=== PATIENT | female | born 1990 | race Two or more races ===

== ENCOUNTER 2025-10-24 16:10 | Inpatient (IN) | payer OTHER ==
[~2025-10-24] VITALS: Ht 170.2 cm; Wt 83.9 kg
[2025-10-24] MEDS ORDERED: DICL100G61 TP (16:36)
[2025-10-24] MEDS ORDERED: CHOL2000 PO (16:36)
[2025-10-24] MEDS ORDERED: FOLI1TAB94 PO (16:36)
[2025-10-24] MEDS ORDERED: HYDR5TAB PO (16:36)
[2025-10-24] MEDS ORDERED: [UNRECOGNIZED DRUG - CODE] PO (16:36)
[2025-10-24] MEDS ORDERED: HYDR500C2 PO (16:36)
[2025-10-24] MEDS ORDERED: ALBU2.5V38 NEB (16:36)
[2025-10-24] MEDS ORDERED: CETI-90 PO (16:36)
[2025-10-24] MEDS ORDERED: [UNRECOGNIZED DRUG - CODE] PO (16:36)
[2025-10-24] MEDS ORDERED: DOCU100T2 PO (16:36)
[2025-10-24] MEDS ORDERED: IPRA3AMP22 NEB (16:36)
[2025-10-24] MEDS ORDERED: HYDR-501 PO (16:36)
[2025-10-24] MEDS ORDERED: LEVE500T9 PO (16:36)
[2025-10-24] MEDS ORDERED: DIPH25TA62 PO (16:36)
[2025-10-24] MEDS ORDERED: GABA300C PO (16:36)
[2025-10-24] MEDS ORDERED: CALC-494 PO (16:36)
[2025-10-24] MEDS ORDERED: BUPR100T5 PO (16:36)
[2025-10-24] MEDS ORDERED: MIRT-93 PO (16:43)
[2025-10-24] MEDS ORDERED: MULT400T5 PO (16:43)
[2025-10-24] MEDS ORDERED: PANT20TA2 PO (16:43)
[2025-10-24] MEDS ORDERED: LORA0.5T48 PO (16:43)
[2025-10-24] MEDS ORDERED: ONDA-104 PO (16:43)
[2025-10-24] MEDS ORDERED: OXYC5CAP22 PO (16:43)
[2025-10-24] MEDS ORDERED: MIDO10TA3 PO (16:43)
[2025-10-24] MEDS ORDERED: SIME80TA15 PO (16:43)
[2025-10-24] MEDS ORDERED: THIA100T88 PO (16:43)
[2025-10-24] MEDS ORDERED: SEVE2.4P3 PO (16:43)
[2025-10-24] MEDS ORDERED: NALO4SPR NS (16:43)
[2025-10-24] MEDS ORDERED: MELA10CA11 PO (16:43)
[2025-10-24] MEDS ORDERED: RIFA550T PO (16:43)
[2025-10-24] MEDS ORDERED: POLY17PO4 PO (16:43)
[2025-10-24 19:07] LABS: PLATELET COUNT (AUTO) 80 K/uL (179-408); RED CELL DISTRIBUTION WIDTH 20.0 % (12.3-17.7); WHITE BLOOD COUNT (AUTO) 8.9 K/uL (3.8-11.8)
[2025-10-24 19:11] LABS: RED BLOOD CELL COUNT(AUTO) 1.88 MIL/uL (3.63-4.92)
[2025-10-24 19:13] LABS: ASPARTATE AMINOTRANSFERASE 55 U/L (15-37); CREATININE 3.9 mg/dL (0.6-1.3); SODIUM SERUM 140 mmol/L (136-145); TOTAL PROTEIN, SERUM 6.8 g/dL (6.4-8.2); UREA NITROGEN, BLOOD 29 mg/dL (7-18)
[2025-10-24 19:19] LABS: LACTIC ACID 10.6 mmol/L (0.4-2.0)
[2025-10-24] MEDS ORDERED: DEXTROSE 50% 50 ML DISP.SYRIN ONE (19:19)
[2025-10-24] MEDS: IV NORMAL SALINE 1000 ML BAG IV ONE (19:30)
[2025-10-24] MEDS ORDERED: NOREPINEPHRINE 8MG/NS 250ML 250 ML IV ONE (19:37)
[2025-10-24 19:45] LABS: ACETONE, SERUM NEGATIVE (NEGATIVE)
[2025-10-24] MEDS: DEXTROSE 50% 50 ML DISP.SYRIN IV ONE (19:45)
[2025-10-24] MEDS ORDERED: ENOXAPARIN SODIUM 60 MG/0.6 ML DISP.SYRIN SQ ONE (19:51)
[2025-10-24] MEDS ORDERED: ETOMIDATE 20 MG/10 ML VIAL ONE (19:52)
[2025-10-24] MEDS: ETOMIDATE 20 MG/10 ML VIAL IV ONE (19:57)
[2025-10-24] MEDS: SUCCINYLCHOLINE CHLORIDE 200 MG/10 ML VIAL IV ONE (19:58)
[2025-10-24] MEDS ORDERED: SUCCINYLCHOLINE CHLORIDE 200 MG/10 ML VIAL ONE (20:00)
[2025-10-24] MEDS: ENOXAPARIN SODIUM 60 MG/0.6 ML DISP.SYRIN SQ ONE (20:00)
[2025-10-24] MEDS ORDERED: PROPOFOL 100 ML ONE (20:00)
[2025-10-24] MEDS: PROPOFOL 100 ML IV ONE (20:00)
[2025-10-24 20:22] LABS: BAND % (MANUAL) 21 % (0-10); LYMPHOCYTES % (MANUAL) 31 % (20-40); MONOCYTES % (MANUAL) 10 % (2-10); MYELOCYTES % 1 % (0-0); NEUTROPHILS % (MANUAL) 37 % (42-75)
[2025-10-24 20:48] LABS: PLATELET ESTIMATE DECREASED
[2025-10-24] MEDS ORDERED: ONDANSETRON 4 MG/2 ML VIAL ONE (21:21)
[2025-10-24] MEDS: ONDANSETRON 4 MG/2 ML VIAL IV ONE (21:30)
[2025-10-24] MEDS: NOREPINEPHRINE 8MG/NS 250ML 250 ML IV PRN (21:38)
[2025-10-24] MEDS ORDERED: ONDANSETRON 4 MG/2 ML VIAL IV PRN (21:45)
[2025-10-24] MEDS ORDERED: MAGNESIUM HYDROXIDE 30 ML LIQUID UDC PO PRN (21:45)
[2025-10-24 22:00] VITALS: BP 95/57
[2025-10-24 22:08] LABS: ABG BASE EXCESS -7.7 mmol/L (-2.0-3.0); ABG HCO3 17.2 mmol/L (21.0-28.0); ABG PCO2 31.5 mmHg (32.0-45.0); ABG PH 7.354 (7.350-7.450); ABG PO2 100.9 mmHg (83.0-108.0); ABG SITE RIGHT BRACHIAL; ABG TOTAL HEMOGLOBIN 6.2 G/dL (12.0-16.0); AaDO2 97.5 mmHg; FIO2 60.0 %; PEEP,BG 5.0 cmH20; SET RATE, BG 18.0; VT, ABG 450 mL
[2025-10-24] MEDS ORDERED: INSULIN REGULAR, HUMAN 1000 UNIT/10 ML VIAL SQ PRN (22:15)
[2025-10-24] MEDS: PROPOFOL 100 ML IV PRN (22:33)
[2025-10-24 22:57] VITALS: BP 95/48
[2025-10-24 23:00] VITALS: BP 95/51; TEMP 98.8; O2SAT 100
[2025-10-24 23:15] VITALS: BP 94/51; O2SAT 100
[2025-10-24 23:30] VITALS: BP 100/55; O2SAT 100
[2025-10-24] MEDS: BLOOD SUGAR DIAGNOSTIC 1 EACH STRIP VI SCH (23:44)
[2025-10-24 23:45] VITALS: BP 98/56; O2SAT 100
[2025-10-25] VITALS (101 sets, daily range): BP systolic 64–131; BP diastolic 36–81; TEMP 98–99; O2SAT 93–100
[2025-10-25] MEDS: VANCOMYCIN IV 1,000 MG in IV NORMAL SALINE 250 ML IV ONE (02:56)
[2025-10-25] MEDS: PANTOPRAZOLE SODIUM 40 MG VIAL IV SCH (02:57)
[2025-10-25] MEDS: PROPOFOL 100 ML IV PRN (04:00)
[2025-10-25 04:48] LABS: PLATELET COUNT (AUTO) 89 K/uL (179-408); RED BLOOD CELL COUNT(AUTO) 3.04 MIL/uL (3.63-4.92); RED CELL DISTRIBUTION WIDTH 19.7 % (12.3-17.7); WHITE BLOOD COUNT (AUTO) 12.9 K/uL (3.8-11.8)
[2025-10-25 04:59] LABS: ASPARTATE AMINOTRANSFERASE 79.0 U/L (15-37); CREATININE 2.7 mg/dL (0.6-1.3); SODIUM SERUM 138.0 mmol/L (136-145); TOTAL PROTEIN, SERUM 8.0 g/dL (6.4-8.2); UREA NITROGEN, BLOOD 18.0 mg/dL (7-18)
[2025-10-25 05:14] LABS: IRON, SERUM 108.0 ug/dL (50-175)
[2025-10-25 06:09] LABS: BAND % (MANUAL) 6 % (0-10); EOSINOPHILS % (MANUAL) 1 % (0-8); LYMPHOCYTES % (MANUAL) 34 % (20-40); METAMYELOCYTES % 2 % (0-1); MONOCYTES % (MANUAL) 12 % (2-10); MYELOCYTES % 2 % (0-0); NEUTROPHILS % (MANUAL) 43 % (42-75)
[2025-10-25 06:10] LABS: PLATELET ESTIMATE DECREASED
[2025-10-25 06:15] LABS: NUCLEATED RED BLOOD CELLS 3.0 /100WBC
[2025-10-25] MEDS: NOREPINEPHRINE 8MG/NS 250ML 250 ML IV PRN (06:16)
[2025-10-25] MEDS: NOREPINEPHRINE BITARTRATE 32 MG in IV NORMAL SALINE 218 ML IV PRN (09:00)
[2025-10-25] MEDS ORDERED: PANTOPRAZOLE SODIUM 40 MG VIAL IV SCH (09:00)
[2025-10-25] MEDS ORDERED: VANCOMYCIN IV 500 MG in IV DEXTROSE 5% 100 ML IV PRN (10:00)
[2025-10-25] MEDS: MAGNESIUM SULFATE/D5W 100 ML IV SCH (10:42)
[2025-10-25] MEDS: POTASSIUM CHLORIDE 50 ML IV SCH (11:01)
[2025-10-25] MEDS: AMIODARONE HCL IV 150 MG in IV DEXTROSE 5% 100 ML IV ONE (11:06)
[2025-10-25] MEDS: DEXTROSE 50% 50 ML DISP.SYRIN IV PRN (11:09)
[2025-10-25] MEDS: AMIODARONE HCL IV 450 MG in IV DEXTROSE 5% 250 ML IV PRN (11:12)
[2025-10-25] MEDS ORDERED: NOREPINEPHRINE 8MG/NS 250ML 250 ML IV PRN (12:00)
[2025-10-25 14:16] LABS: HIV-1/2 ANTIBODY NON REACTIVE (NONREACTIVE)
[2025-10-25] MEDS: MICAFUNGIN SODIUM 100 MG in IV NORMAL SALINE 100 ML IV SCH (15:05)
[2025-10-25] MEDS: IV D5/ 0.9% NACL 1,000 ML IV PRN (17:45)
[2025-10-25] MEDS ORDERED: VASOPRESSIN 40 UNIT in IV NORMAL SALINE 40 ML IV PRN (19:00)
[2025-10-25 20:28] LABS: ABG BASE EXCESS -2.7 mmol/L (-2.0-3.0); ABG HCO3 21.2 mmol/L (21.0-28.0); ABG PCO2 33.0 mmHg (32.0-45.0); ABG PH 7.425 (7.350-7.450); ABG PO2 148.6 mmHg (83.0-108.0); ABG SITE LEFT BRACHIAL; ABG TOTAL HEMOGLOBIN 9.6 G/dL (12.0-16.0); AaDO2 99.0 mmHg; FIO2 60.0 %; PEEP,BG 5.0 cmH20; SET RATE, BG 18.0; VT, ABG 450 mL
[2025-10-25] MEDS ORDERED: MEROPENEM 500 MG in IV NORMAL SALINE 50 ML IV SCH (21:00)
[2025-10-25] MEDS ORDERED: CEFEPIME (MAXEPIME) 1 G in IV DEXTROSE 5% 50 ML IV SCH (21:00)
[2025-10-25] MEDS: MEROPENEM 500 MG in IV NORMAL SALINE 50 ML IV SCH (21:59)
[2025-10-25] MEDS: PHENYLEPHRINE 10 MG/1 ML VIAL ONE (22:05)
[2025-10-25] MEDS: PHENYLEPHRINE IV 100 MG in IV NORMAL SALINE 240 ML IV PRN (22:05)
[2025-10-26] VITALS (85 sets, daily range): BP systolic 74–107; BP diastolic 41–64; TEMP 97.8–100; O2SAT 91–98
[2025-10-26] MEDS: VANCOMYCIN IV 500 MG in IV DEXTROSE 5% 100 ML IV ONE (05:00)
[2025-10-26 05:51] LABS: PLATELET COUNT (AUTO) 66 K/uL (179-408); RED BLOOD CELL COUNT(AUTO) 2.89 MIL/uL (3.63-4.92); RED CELL DISTRIBUTION WIDTH 20.1 % (12.3-17.7); WHITE BLOOD COUNT (AUTO) 16.2 K/uL (3.8-11.8)
[2025-10-26 05:53] LABS: CREATININE 3.3 mg/dL (0.6-1.3); SODIUM SERUM 131.0 mmol/L (136-145); UREA NITROGEN, BLOOD 25.0 mg/dL (7-18)
[2025-10-26 06:20] LABS: BAND % (MANUAL) 4 % (0-10); EOSINOPHILS % (MANUAL) 1 % (0-8); LYMPHOCYTES % (MANUAL) 56 % (20-40); METAMYELOCYTES % 1 % (0-1); MONOCYTES % (MANUAL) 3 % (2-10); MYELOCYTES % 1 % (0-0); NEUTROPHILS % (MANUAL) 34 % (42-75); PLATELET ESTIMATE DECREASED
[2025-10-26 06:21] LABS: ABG BASE EXCESS -6.7 mmol/L (-2.0-3.0); ABG HCO3 18.0 mmol/L (21.0-28.0); ABG PCO2 33.0 mmHg (32.0-45.0); ABG PH 7.355 (7.350-7.450); ABG PO2 67.5 mmHg (83.0-108.0); ABG SITE LEFT BRACHIAL; ABG TOTAL HEMOGLOBIN 9.6 G/dL (12.0-16.0); AaDO2 92.9 mmHg; FIO2 40.0 %; SET RATE, BG 18.0; VT, ABG 450 mL
[2025-10-27] VITALS (95 sets, daily range): BP systolic 73–112; BP diastolic 35–55; TEMP 98.6–99.7; O2SAT 89–100
[2025-10-27 06:11] LABS: ABG BASE EXCESS -12.5 mmol/L (-2.0-3.0); ABG HCO3 12.9 mmol/L (21.0-28.0); ABG PCO2 27.7 mmHg (32.0-45.0); ABG PH 7.286 (7.350-7.450); ABG PO2 54.6 mmHg (83.0-108.0); ABG SITE LEFT BRACHIAL; ABG TOTAL HEMOGLOBIN 8.9 G/dL (12.0-16.0); AaDO2 85.4 mmHg; FIO2 50.0 %; PEEP,BG 5.0 cmH20; SET RATE, BG 18.0; VT, ABG 450 mL
[2025-10-27] MEDS: ALBUMIN HUMAN 25% 50 ML IV PRN (08:37)
[2025-10-27 09:06] LABS: ASPARTATE AMINOTRANSFERASE 92.0 U/L (15-37); CREATININE 3.0 mg/dL (0.6-1.3); SODIUM SERUM 135.0 mmol/L (136-145); TOTAL PROTEIN, SERUM 6.3 g/dL (6.4-8.2); UREA NITROGEN, BLOOD 22.0 mg/dL (7-18)
[2025-10-27 09:21] LABS: LACTIC ACID 9.5 mmol/L (0.4-2.0)
[2025-10-27 10:27] LABS: RED BLOOD CELL COUNT(AUTO) 2.63 MIL/uL (3.63-4.92); RED CELL DISTRIBUTION WIDTH 20.0 % (12.3-17.7); WHITE BLOOD COUNT (AUTO) 15.4 K/uL (3.8-11.8)
[2025-10-27 10:31] LABS: PLATELET COUNT (AUTO) 46 K/uL (179-408)
[2025-10-27 11:35] LABS: LYMPHOCYTES % (MANUAL) 10 % (20-40); NEUTROPHILS % (MANUAL) 82 % (42-75)
[2025-10-27 11:36] LABS: EOSINOPHILS % (MANUAL) 1 % (0-8); MONOCYTES % (MANUAL) 7 % (2-10); PLATELET ESTIMATE DECREASED
[2025-10-27 11:37] LABS: NUCLEATED RED BLOOD CELLS 5.0 /100WBC
[2025-10-27] MEDS: VANCOMYCIN IV 1,000 MG in IV DEXTROSE 5% 250 ML IV ONE (12:59)
[2025-10-27 16:22] LABS: *RHEUMATOID FACTOR SCREEN NEGATIVE (NEGATIVE)
[2025-10-27 16:47] LABS: HIV-1/2 ANTIBODY NON REACTIVE (NONREACTIVE)
[2025-10-27 17:08] LABS: FIBRINOGEN ACTIVITY 12 mg/dL (210-360)
[2025-10-27 17:21] LABS: IRON, SERUM 104.0 ug/dL (50-175); LACTATE DEHYDROGENASE 192.0 U/L (81-234)
[2025-10-27] MEDS ORDERED: POLYVINYL ALCOHOL OPHT DROPS 15 ML BOTTLE EACHEYE PRN (18:30)
[2025-10-27] MEDS ORDERED: ACET-3752 PO (19:16)
[2025-10-27] MEDS ORDERED: HYDR2TAB4 PO (19:18)
[2025-10-27] MEDS ORDERED: [UNRECOGNIZED DRUG - OTHER] PO (19:20)
[2025-10-27] MEDS ORDERED: METO25TA6 PO (19:21)
[2025-10-27] MEDS ORDERED: ONDA-245 PO (19:22)
[2025-10-27] MEDS ORDERED: SIME80TA16 PO (19:24)
[2025-10-27] MEDS ORDERED: SEVE800T28 PO (19:28)
[2025-10-27] MEDS ORDERED: SERT-438 PO (19:29)
[2025-10-27 23:09] LABS: HEPATITIS B SURFACE AG Negative (Negative)
[2025-10-27] MEDS: ACETAMINOPHEN 650 MG SUPP.RECT RC PRN (23:46)
[2025-10-28] VITALS (96 sets, daily range): BP systolic 70–114; BP diastolic 19–62; TEMP 97.8–100.3; O2SAT 91–100
[2025-10-28] MEDS: diphenhydrAMINE 50 MG/1 ML VIAL IV ONE ×3 (00:21→09:35)
[2025-10-28 05:15] LABS: RED CELL DISTRIBUTION WIDTH 20.5 % (12.3-17.7); WHITE BLOOD COUNT (AUTO) 13.8 K/uL (3.8-11.8)
[2025-10-28 05:23] LABS: CREATININE 3.0 mg/dL (0.6-1.3); SODIUM SERUM 135.0 mmol/L (136-145); UREA NITROGEN, BLOOD 20.0 mg/dL (7-18)
[2025-10-28 05:24] LABS: RED BLOOD CELL COUNT(AUTO) 2.34 MIL/uL (3.63-4.92)
[2025-10-28 05:26] LABS: PLATELET COUNT (AUTO) 29 K/uL (179-408)
[2025-10-28 05:34] LABS: FIBRINOGEN ACTIVITY 267.0 mg/dL (210-360)
[2025-10-28 06:19] LABS: BAND % (MANUAL) 1 % (0-10); LYMPHOCYTES % (MANUAL) 13 % (20-40); METAMYELOCYTES % 2 % (0-1); MONOCYTES % (MANUAL) 12 % (2-10); NEUTROPHILS % (MANUAL) 72 % (42-75); PLATELET ESTIMATE DECREASED
[2025-10-28 07:46] LABS: ABG BASE EXCESS -13.8 mmol/L (-2.0-3.0); ABG HCO3 12.5 mmol/L (21.0-28.0); ABG PCO2 30.5 mmHg (32.0-45.0); ABG PH 7.231 (7.350-7.450); ABG PO2 84.5 mmHg (83.0-108.0); ABG SITE LEFT BRACHIAL; ABG TOTAL HEMOGLOBIN 6.4 G/dL (12.0-16.0); AaDO2 94.7 mmHg; FIO2 80.0 %; PEEP,BG 5.0 cmH20; SET RATE, BG 18.0; VT, ABG 450 mL
[2025-10-28] MEDS ORDERED: SODIUM BICARBONATE 8.4% 50 MEQ/50 ML DISP.SYRIN IV ONE (09:15)
[2025-10-28] MEDS: DEXTROSE IV PRN (09:53)
[2025-10-28] MEDS: SODIUM BICARBONATE IV PRN (09:53)
[2025-10-28] MEDS: MAGNESIUM SULFATE/D5W 100 ML IV SCH (11:00)
[2025-10-28] MEDS: POTASSIUM CHLORIDE 50 ML IV SCH (11:12)
[2025-10-28 11:31] LABS: TOTAL PROTEIN, SERUM 6.3 g/dL (6.4-8.2)
[2025-10-28] MEDS ORDERED: LACTULOSE 20 G/30 ML LIQUID UDC PR SCH (11:45)
[2025-10-28 11:47] LABS: ASPARTATE AMINOTRANSFERASE 279.0 U/L (15-37)
[2025-10-28] MEDS: PHYTONADIONE 10 MG/1 ML AMPUL SQ ONE (12:45)
[2025-10-28] MEDS: LIDOCAINE 2%-EPI 1:100,000 20 ML VIAL TP ONE (12:46)
[2025-10-28] MEDS: ALBUTEROL SULFATE 2.5 MG/3 ML NEBU NEB PRN (13:24)
[2025-10-28] MEDS: IPRATROPIUM BROMIDE 0.5 MG/2.5 ML NEBU NEB PRN (13:24)
[2025-10-28 13:42] LABS: PLATELET COUNT (AUTO) 54 K/uL (179-408); RED BLOOD CELL COUNT(AUTO) 3.59 MIL/uL (3.63-4.92); RED CELL DISTRIBUTION WIDTH 21.2 % (12.3-17.7); WHITE BLOOD COUNT (AUTO) 10.2 K/uL (3.8-11.8)
[2025-10-28] MEDS: IRR STERIL WATER FOR IRR 700 ML, LACTULOSE 200 G PR SCH (15:00)
[2025-10-28] MEDS: LACTULOSE 20 G/30 ML LIQUID UDC PO SCH (15:25)
[2025-10-28] MEDS: HYDROXYUREA 500 MG CAPSULE PO SCH (15:26)
[2025-10-28] MEDS: BLOOD SUGAR DIAGNOSTIC 1 EACH STRIP VI SCH (17:57)
[2025-10-28] MEDS: EPINEPHRINE 10 MG in IV NORMAL SALINE 240 ML IV PRN (23:33)
[2025-10-29] VITALS (106 sets, daily range): BP systolic 81–97; BP diastolic 23–53; TEMP 97.1–98.4; O2SAT 88–98
[2025-10-29 05:29] LABS: WHITE BLOOD COUNT (AUTO) 11.4 K/uL (3.8-11.8)
[2025-10-29 05:32] LABS: RED CELL DISTRIBUTION WIDTH 21.5 % (12.3-17.7)
[2025-10-29 05:37] LABS: ABG BASE EXCESS -18.3 mmol/L (-2.0-3.0); ABG HCO3 11.5 mmol/L (21.0-28.0); ABG PCO2 46.4 mmHg (32.0-45.0); ABG PH 7.012 (7.350-7.450); ABG PO2 82.0 mmHg (83.0-108.0); ABG SITE LEFT BRACHIAL; ABG TOTAL HEMOGLOBIN 7.6 G/dL (12.0-16.0); AaDO2 89.4 mmHg; FIO2 100.0 %; FLOW, BLOOD GAS 60.00 L/min (0.00-30.00); PEEP,BG 5.0 cmH20; SET RATE, BG 18.0; VT, ABG 450 mL
[2025-10-29 05:45] LABS: ASPARTATE AMINOTRANSFERASE 773.0 U/L (15-37); CREATININE 3.2 mg/dL (0.6-1.3); SODIUM SERUM 135.0 mmol/L (136-145); TOTAL PROTEIN, SERUM 6.0 g/dL (6.4-8.2); UREA NITROGEN, BLOOD 20.0 mg/dL (7-18)
[2025-10-29 05:48] LABS: FIBRINOGEN ACTIVITY 157.0 mg/dL (210-360); RED BLOOD CELL COUNT(AUTO) 2.37 MIL/uL (3.63-4.92)
[2025-10-29 05:49] LABS: PLATELET COUNT (AUTO) 31 K/uL (179-408)
[2025-10-29 06:08] LABS: BAND % (MANUAL) 4 % (0-10); LYMPHOCYTES % (MANUAL) 35 % (20-40); METAMYELOCYTES % 2 % (0-1); MONOCYTES % (MANUAL) 6 % (2-10); NEUTROPHILS % (MANUAL) 53 % (42-75); PLATELET ESTIMATE DECREASED
[2025-10-29] MEDS: ACETAMINOPHEN 325 MG TABLET PO PRN (09:36)
[2025-10-29] MEDS: diphenhydrAMINE 50 MG/1 ML VIAL IV ONE ×3 (09:51→18:34)
[2025-10-29] MEDS: PHYTONADIONE 10 MG/1 ML AMPUL SQ ONE (12:50)
[2025-10-29] MEDS: ACETAMINOPHEN 325 MG TABLET PO ONE (12:53)
[2025-10-29 13:07] LABS: *ANTI-SCLERODERMA-70 AB <0.2 AI (0.0-0.9); *RNP ANTIBODIES <0.2 AI (0.0-0.9); *SJOGREN'S ANTI-SS-A <0.2 AI (0.0-0.9); *SJOGREN'S ANTI-SS-B <0.2 AI (0.0-0.9); *SMITH ANTIBODIES <0.2 AI (0.0-0.9); ANTI-DNA(DS) AB, QN 8 IU/mL (0-9); ANTI-NUCLEAR AB DIRECT Negative (Negative)
[2025-10-29] MEDS: ACETAMINOPHEN 650 MG/20.3 ML LIQUID UDC GT ONE (18:36)
[2025-10-29] MEDS ORDERED: ACETAMINOPHEN 500 MG TABLET PO PRN (20:30)
[2025-10-29] MEDS: ACETAMINOPHEN 650 MG/20.3 ML LIQUID UDC GT PRN (21:37)
[2025-10-29] MEDS: diphenhydrAMINE 50 MG/1 ML VIAL IV PRN (21:37)
[2025-10-29 22:07] LABS: *IMMUNOGLOBULIN G, SERUM 2786 mg/dL (586-1602); FOLATE (FOLIC ACID), SERUM 8.7 ng/mL (>3.0); HAPTOGLOBIN 26 mg/dL (33-278); IMMUNOGLOBULIN A, SERUM 452 mg/dL (87-352); IMMUNOGLOBULIN M, SERUM 69 mg/dL (26-217)
[2025-10-29 23:09] LABS: CANCER ANTIGEN 15-3 19.7 U/mL (0.0-25.0); CARCINOEMBRYONIC AG (CEA) 13.0 ng/mL (0.0-4.7)
[2025-10-30] VITALS (61 sets, daily range): BP systolic 47–113; BP diastolic 11–62; TEMP 97.3–98; O2SAT 69–96
[2025-10-30 03:11] LABS: HEPATITIS B CORE AB, IgM Negative (Negative); HEPATITIS B SURFACE AB, QUAL Reactive (.); HEPATITIS B SURFACE AG Negative (Negative); HEPATITIS C VIRUS ANTIBODY Non Reactive (Non Reactive)
[2025-10-30 04:37] LABS: RED BLOOD CELL COUNT(AUTO) 2.83 MIL/uL (3.63-4.92); RED CELL DISTRIBUTION WIDTH 21.2 % (12.3-17.7); WHITE BLOOD COUNT (AUTO) 12.9 K/uL (3.8-11.8)
[2025-10-30 04:47] LABS: CREATININE 3.2 mg/dL (0.6-1.3); SODIUM SERUM 135.0 mmol/L (136-145); UREA NITROGEN, BLOOD 20.0 mg/dL (7-18)
[2025-10-30 04:48] LABS: PLATELET COUNT (AUTO) 41 K/uL (179-408)
[2025-10-30 04:50] LABS: FIBRINOGEN ACTIVITY 109.0 mg/dL (210-360)
[2025-10-30 05:31] LABS: BAND % (MANUAL) 8 % (0-10); MONOCYTES % (MANUAL) 10 % (2-10); PLATELET ESTIMATE MARKED DECREASED
[2025-10-30 05:33] LABS: NUCLEATED RED BLOOD CELLS 2.0 /100WBC
[2025-10-30 05:36] LABS: LYMPHOCYTES % (MANUAL) 13 % (20-40)
[2025-10-30 05:37] LABS: NEUTROPHILS % (MANUAL) 69 % (42-75)
[2025-10-30 09:10] LABS: A/G RATIO 0.7 (0.7-1.7); BETA GLOBULIN 0.5 g/dL (0.7-1.3); GLOBULIN, TOTAL 3.5 g/dL (2.2-3.9); M-SPIKE Not Observed g/dL (Not Observed); PROTEIN, TOTAL 5.9 g/dL (6.0-8.5)
[2025-10-30] MEDS ORDERED: diphenhydrAMINE 50 MG/1 ML VIAL IV ONE (11:00)
[2025-10-30] MEDS ORDERED: ACETAMINOPHEN 325 MG TABLET PO ONE (11:00)
[2025-10-30 13:07] LABS: FREE KAPPA LT CHAINS SERUM 175.3 mg/L (3.3-19.4); FREE LAMBDA LT CHAIN SERUM 230.0 mg/L (5.7-26.3); KAPPA/LAMBDA RATIO SERUM 0.76 (0.26-1.65)
[2025-10-31 03:45] LABS: ABG BASE EXCESS -27.6 mmol/L (-2.0-3.0); ABG HCO3 6.9 mmol/L (21.0-28.0); ABG PCO2 53.2 mmHg (32.0-45.0); ABG PH 6.732 (7.350-7.450); ABG PO2 < 40.5 mmHg (83.0-108.0); ABG SITE VBG - N/A; ABG TOTAL HEMOGLOBIN 9.0 G/dL (12.0-16.0); AaDO2 24.0 mmHg; FIO2 100.0 %; PEEP,BG 5.0 cmH20; SET RATE, BG 24.0; VT, ABG 450 mL
== END 2025-10-30 13:00 | DRG 720 ==
LOC: ER 16:13 → ICU IN 21:00 → CCU 21:41
PROVIDERS: ADMIT Nurse Practitioner Family; ATTEND Nurse Practitioner Family
PROC: 0BH17EZ Insertion of Endotracheal Airway into Trachea, Via Natural or Artificial Opening (ICD-10-PCS; principal; 2025-10-24)
PROC: 06HY33Z Insertion of Infusion Device into Lower Vein, Percutaneous Approach (ICD-10-PCS; principal; 2025-10-24)
PROC: 5A1955Z Respiratory Ventilation, Greater than 96 Consecutive Hours (ICD-10-PCS; principal; 2025-10-24)
PROC: 5A1D70Z Performance of Urinary Filtration, Intermittent, Less than 6 Hours Per Day (ICD-10-PCS; 2025-10-25)
PROC: 30243N1 Transfusion of Nonautologous Red Blood Cells into Central Vein, Percutaneous Approach (ICD-10-PCS; 2025-10-25)
PROC: 05PY33Z Removal of Infusion Device from Upper Vein, Percutaneous Approach (ICD-10-PCS; 2025-10-28)
PROC: 30243R1 Transfusion of Nonautologous Platelets into Central Vein, Percutaneous Approach (ICD-10-PCS; 2025-10-28)
PROC: 30233K1 Transfusion of Nonautologous Frozen Plasma into Peripheral Vein, Percutaneous Approach (ICD-10-PCS; 2025-10-28)
PROC: 30233M1 Transfusion of Nonautologous Plasma Cryoprecipitate into Peripheral Vein, Percutaneous Approach (ICD-10-PCS; 2025-10-28)
DX: A41.51 Sepsis due to Escherichia coli [E. coli] (principal); D65 Disseminated intravascular coagulation [defibrination syndrome]; K72.00 Acute and subacute hepatic failure without coma; R65.21 Severe sepsis with septic shock; J96.01 Acute respiratory failure with hypoxia; J15.0 Pneumonia due to Klebsiella pneumoniae; I13.2 Hypertensive heart and chronic kidney disease with heart failure and with stage 5 chronic kidney disease, or end stage renal disease; J15.5 Pneumonia due to Escherichia coli; R18.8 Other ascites; D61.818 Other pancytopenia; N18.6 End stage renal disease; Z99.2 Dependence on renal dialysis; I69.354 Hemiplegia and hemiparesis following cerebral infarction affecting left non-dominant side; D63.1 Anemia in chronic kidney disease; E11.22 Type 2 diabetes mellitus with diabetic chronic kidney disease; G40.909 Epilepsy, unspecified, not intractable, without status epilepticus; E44.1 Mild protein-calorie malnutrition; K74.60 Unspecified cirrhosis of liver; G93.89 Other specified disorders of brain; D57.1 Sickle-cell disease without crisis; Z66 Do not resuscitate; I21.A1 Myocardial infarction type 2; Z86.718 Personal history of other venous thrombosis and embolism; Z16.12 Extended spectrum beta lactamase (ESBL) resistance; D68.59 Other primary thrombophilia; I50.33 Acute on chronic diastolic (congestive) heart failure; M79.89 Other specified soft tissue disorders; Z88.0 Allergy status to penicillin; Z87.01 Personal history of pneumonia (recurrent); E78.5 Hyperlipidemia, unspecified; K56.7 Ileus, unspecified; E83.42 Hypomagnesemia; I48.91 Unspecified atrial fibrillation; I47.10 Supraventricular tachycardia, unspecified; I25.2 Old myocardial infarction; E88.09 Other disorders of plasma-protein metabolism, not elsewhere classified; N28.1 Cyst of kidney, acquired; N20.0 Calculus of kidney; Z90.49 Acquired absence of other specified parts of digestive tract; E87.20 Acidosis, unspecified
CPT/HCPCS: 36415; 36600; 70030-TC; 70450; 71045; 76641-TC; 82378; 82746; 82784; 82803; 83010; 83550; 83605; 83615; 83735; 84100; 84155; 84165; 84443; 84478; 84484; 85018; 85025; 85610; 85730; 86038; 86300; 86334; 86430; 86705; 86706; 86709; 86803; 86850; 86880; 86900; 86901; 86920; 87040; 87070; 87077; 87328; 87340; 87350; 87806; 93005; 93307; 94002; 94003; 94640; 94760; 99082-TC; A4606; A4663; G0378; J0169; J0282; J0330; J0692; J1200; J1650; J1815; J1953; J1956; J2185; J2248; J2405; J2470; J3373; J3430; J3475; J3480; J3490; J3590; J7040; J7042; J7050; P9012; P9016; P9035; P9047; P9059